=== PATIENT | female | born 1975 | race Caucasian/White ===

== ENCOUNTER 2021-11-09 09:47 | Outpatient (CLI) | payer BC | END 2021-11-09 09:48 | disposition home or self-care (01) | LOC: CSHMAMMO 09:47 | PROVIDERS: ATTEND Student in an Organized Health Care Education/Training Program | DX: Z12.31 Encounter for screening mammogram for malignant neoplasm of breast (principal) | CPT/HCPCS: 77063; 77067 ==

== ENCOUNTER 2023-04-15 09:07 | Outpatient (CLI) | payer BC | END 2023-04-15 09:08 | disposition home or self-care (01) | LOC: CSHMAMMO 09:07 | PROVIDERS: ATTEND Student in an Organized Health Care Education/Training Program | DX: Z12.31 Encounter for screening mammogram for malignant neoplasm of breast (principal); N63.10 Unspecified lump in the right breast, unspecified quadrant; N64.89 Other specified disorders of breast | CPT/HCPCS: 77063; 77067 ==

== ENCOUNTER 2023-04-19 12:43 | Outpatient (CLI) | payer BC | END 2023-04-19 12:44 | disposition home or self-care (01) | LOC: CSHULT 12:43 | PROVIDERS: ATTEND Nurse Practitioner Family | DX: N63.10 Unspecified lump in the right breast, unspecified quadrant (principal); N64.89 Other specified disorders of breast; N60.01 Solitary cyst of right breast; N60.02 Solitary cyst of left breast | CPT/HCPCS: 77066; G0279 ==